=== PATIENT | male | born 1980 | race Caucasian/White ===

== ENCOUNTER 2016-05-22 23:28 | Emergency (ER) | payer BC ==
[~2016-05-22] VITALS: Ht 177.8 cm; Wt 82.6 kg
[2016-05-23 00:43] VITALS: BP 121/77
== END 2016-05-23 00:44 | disposition left against medical advice (07) ==
LOC: ER 23:33
DX: S09.90XA Unspecified injury of head, initial encounter (principal); W21.07XA Struck by softball, initial encounter; Y93.64 Activity, baseball; Y92.89 Other specified places as the place of occurrence of the external cause; Y99.8 Other external cause status
CPT/HCPCS: 99281; A4606; Z7610; Z7502